=== PATIENT | female | born 1990 | race Caucasian/White ===

== ENCOUNTER 2023-04-09 05:59 | Emergency (ER) | payer OTHER ==
[~2023-04-09] VITALS: Ht 165.1 cm; Wt 65.0 kg
[2023-04-09 06:07] VITALS: O2SAT 98
[2023-04-09] MEDS ORDERED: LACTATED RINGERS 1,000 ML IV SCH (09:00)
[2023-04-09 09:37] LABS: BASOPHILS % 0.1 % (0.0-2.0); EOSINOPHILS % 0.3 % (0.0-5.0); HEMATOCRIT. 37.1 % (36.0-48.0); HEMOGLOBIN. 12.6 g/dL (12.0-16.0); LYMPHOCYTES % 14.8 % (20.0-50.0); MEAN CORPUSCULAR VOLUME 85.3 fL (81.0-99.0); MEAN PLATELET VOLUME 9.8 fl (7.4-10.4); MONOCYTES % 5.9 % (2.0-8.0); NEUTROPHILS % 78.9 % (40.0-76.0); PLATELET 222 x1000/uL (130-400); RED BLOOD CELL COUNT 4.35 mill/uL (4.2-5.4); RED CELL DISTRIBUTION WIDTH 14.7 % (11.6-14.6); WHITE BLOOD COUNT 7.3 x1000/uL (4.5-11.0)
[2023-04-09 10:06] LABS: HCG SCREEN NEGATIVE
[2023-04-09] MEDS ORDERED: ACETAMINOPHEN 325MG TABLET PO ONE (12:15)
[2023-04-09 12:24] LABS: ALANINE AMINOTRANSFERASE 11 IU/L (10-49); ALBUMIN 4.2 g/dL (3.2-4.8); ASPARTATE AMINOTRANSFERASE 17 IU/L (<34); BILIRUBIN TOTAL 1.5 mg/dL (0.1-1.0); CALCIUM 9.2 mg/dL (8.7-10.4); CARBON DIOXIDE 23 mEq/L (21-32); CHLORIDE 105 mEq/L (98-107); CREATININE 0.6 mg/dL (0.6-1.0); GLUCOSE 102 mg/dL (70-105); POTASSIUM 3.9 mEq/L (3.5-5.1); PROTEIN TOTAL 6.8 g/dL (6.0-8.3); SODIUM 139 mEq/L (136-145); UREA NITROGEN BLOOD 8 mg/dL (9-23)
[2023-04-09] MEDS: MECLIZINE 25MG TABLET PO ONE ×2 (12:43→14:59)
[2023-04-09] MEDS ORDERED: ACETAMINOPHEN 325MG TABLET PO NR (14:30)
[2023-04-09] MEDS ORDERED: MECLIZINE 12.5MG TABLET PO NR (14:30)
[2023-04-09] MEDS ORDERED: MECL-299 MT (14:30)
[2023-04-09 15:03] VITALS: BP 109/75; PULSE 96; RESP 20; TEMP 98.6
== END 2023-04-09 15:04 | disposition home or self-care (01) ==
LOC: ER 05:59
DX: R42 Dizziness and giddiness (principal)
CPT/HCPCS: 80053; 84703; 85025; 85379; 36415; 93880; 71045; 70450; 76604; 93005; 96360; 99285; J8597; Z7610